=== PATIENT | female | born 1990 | race Caucasian/White ===

== ENCOUNTER 2021-02-11 04:03 | Emergency (ER) | payer OTHER ==
[~2021-02-11] VITALS: Ht 152.4 cm; Wt 64.4 kg
[~2021-02-11 04:03] MED LIST: CYCLOBENZAPRINE5 MG PO; DICLOFENAC SODI50 MG PO
--- OUTSIDE RECORDS SUMMARY | 2021-02-11 04:12 | XMS ---
PreManage Notification: CHELSEY MUSE Security Network Director Events No recent Security Events currently on file CRITERIA MET - [facility] - 2 Visits in 30 Days CARE PROVIDERS There are no care providers on record at this time. Alphonso has no Care Guidelines for this patient. [place] V[facility] COUNT (12 MO.) [facility] T[facility] 2 NOTE: Visits indicate total known visits. ED/[facility] [place] VISIT TRACKING (12 MO.) 02/11[facility]2021 04:04 [facility] COMPLAINT: - NECK PAIN 02/10/2021 17:12 SIM[facility]N Jay OR TYPE: Emergency COMPLAINT: - NECK PAIN INPATIENT VISIT TRACKING (12 MO.) No inpatient visits to display in this time frame [email or web address]
[2021-02-11] MEDS ORDERED: HYDROCODON-ACE1 EA10 PO (04:45)
== END 2021-02-11 05:05 | disposition home or self-care (01) ==
LOC: ED 04:03
DX: M43.6 Torticollis (principal); F17.200 Nicotine dependence, unspecified, uncomplicated
CPT/HCPCS: 99283